=== PATIENT | female | born 1995 | race African-American/Black ===

== ENCOUNTER 2018-05-01 10:27 | Emergency (ER) | payer OTHER, SELFPAY ==
[2018-05-01] MEDS ORDERED: Acetaminophen 500 MG TAB ONE (10:52)
[2018-05-01 11:15] LABS: Bilirubin Small (Negative); Blood, Urine Large (Negative); Clarity CLOUDY (Clear); Glucose, Urine (Dipstick) Negative (Negative); Leukocyte Small (Negative); Nitrite Negative (Negative); Protein, Urine (Dipstick) Trace mg/dL (Neg-Trace); Specific Gravity, Urine 1.029 (1.002-1.036); pH, Urine 5.5 (5.0-9.0)
[2018-05-01 11:18] LABS: Pregnancy Test - Urine (BHCG) Negative (Negative); Pregu Control Background? CLEAR/WHITE (CLR/WHITE); Pregu Control Bar Appear? YES (CONTROL BAR); Specific Gravity 1.029 (1.002-1.036)
[2018-05-01 11:30] LABS: Bacteria/HPF 1+ HPF (None Seen); Hyaline Casts/LPF NONE SEEN LPF (0-3 Hyaline); Squamous Epithelial 0-3 HPF (0-3)
== END 2018-05-01 12:05 | disposition home or self-care (01) ==
LOC: ERS 10:27
DX: N39.0 Urinary tract infection, site not specified (principal); R50.9 Fever, unspecified; F41.9 Anxiety disorder, unspecified; F32.9 Major depressive disorder, single episode, unspecified; Z79.51 Long term (current) use of inhaled steroids
CPT/HCPCS: 81003; 81015; 81025; 87077; 87086; 87804; 99283

== ENCOUNTER 2018-10-25 03:11 | Emergency (ER) | payer SELFPAY | END 2018-10-25 05:07 | disposition home or self-care (01) | LOC: ERS 03:11 | DX: R09.81 Nasal congestion (principal); R05 Cough; J45.909 Unspecified asthma, uncomplicated; F41.9 Anxiety disorder, unspecified; F32.9 Major depressive disorder, single episode, unspecified | CPT/HCPCS: 99283 ==

== ENCOUNTER 2020-01-11 09:53 | Outpatient (CLI) | payer OTHER ==
--- NOTE | 2020-01-11 11:40 | ULT ---
OB ULTRASOUND GREATER THAN 14 WEEKS COMPLETE: HISTORY: Anatomy, cervical length. FINDINGS: A single viable intrauterine fetus is noted in breech presentation. Cervical length 4.1 cm. Placent a is anterior. heart rate 138 b.p.m. Normal amniotic fluid with an TENISHA of 10.3 cm. anatomy including visualized brain, 4-chamber heart, 3-vessel cord, stomach, bladder, kidneys, spine, and extremity regions were unremarkable. Biometry: BPD: 4.9 cm-20 weeks 6 days. Head circumference: 19 cm-21 weeks 2 days. Abdominal circumference: 15.9 cm-21 weeks 1 day. Femur length: 3.5 cm-21 weeks 0 days. IMPRESSION: Single viable intrauterine fetus 21 weeks 1 day. Estimated date of delivery 05/27/2020. Estimated weight 392 gm. POS: RRE
== END 2020-01-11 09:54 | disposition home or self-care (01) ==
LOC: BICULT 09:53
PROVIDERS: ATTEND Family Medicine
DX: Z34.02 Encounter for supervision of normal first pregnancy, second trimester (principal); Z3A.21 21 weeks gestation of pregnancy
CPT/HCPCS: 76805

== ENCOUNTER 2023-11-17 23:50 | Emergency (ER) | payer OTHER ==
[2023-11-18] MEDS ORDERED: Ipratropium/Albuterol 3 ML NEB ONE (01:32)
== END 2023-11-18 03:34 | disposition home or self-care (01) ==
LOC: ERS 23:50
DX: J45.901 Unspecified asthma with (acute) exacerbation (principal)
CPT/HCPCS: 71045; J7620

== ENCOUNTER 2024-03-06 18:03 | Emergency (ER) | payer OTHER ==
[2024-03-06 19:23] LABS: #Basophils 0.04 10x3/uL (0.0-0.2); %Basophils 0.4 % (0.0-1.0); %Eosinophils 1.1 % (0.0-10.0); %Lymphocytes 15.8 % (21.0-51.0); %Monocytes 5.4 % (0.0-10.0); Mean Corpuscular HGB CONC 34.2 g/dL (32.0-36.0); Mean Corpuscular Hemoglobin 32.3 pg (27.0-31.0); Mean Corpuscular Volume 94.3 fL (78.0-98.0); Mean Platelet Volume 9.6 fL (7.4-10.4); Platelet Count 269 10x3/uL (130-400); RBC Distribution Width 11.9 % (11.5-14.5); Red Blood Cell (RBC) Count 4.03 mill/uL (4.20-5.40)
[2024-03-06 19:41] LABS: ALT (SGPT) 7 U/L (8-55); AST (SGOT) 14 U/L (5-34); Albumin 3.7 g/dL (3.5-5.0); Alkaline Phosphatase 46 U/L (40-110); Anion Gap 14 mmol/L (10-20); BUN (Urea Nitrogen) 4 mg/dL (7.0-18.7); Bilirubin, Total 0.2 mg/dL (0.2-1.2); Calc. Creatinine Clearance 0 mL/min (70-130); Calcium 9.4 mg/dL (7.8-10.44); Carbon Dioxide 19 mmol/L (22-29); Chloride 107 mmol/L (98-107); Estimated GFR 125; Globulin 3.5 g/dL (2.4-3.5); Glucose 76 mg/dL (70-105); Lipase 13 U/L (8-78); Potassium 3.9 mmol/L (3.5-5.1); Protein, Total 7.2 g/dL (6.0-8.3); Sodium 136 mmol/L (136-145)
[2024-03-06 21:43] LABS: Bacteria/HPF None Seen HPF (None Seen); Bilirubin Negative (Negative); Blood, Urine Trace (Negative); CAUTI Indications for Culture Pregnancy; Clarity Clear (Clear); Glucose, Urine (Dipstick) Normal (Negative); Ketone, Urine Negative (Negative); Leukocyte Negative Leu/uL (Negative); Nitrite Negative (Negative); Protein, Urine (Dipstick) Negative (Neg-Trace); RBC/HPF 0-3 HPF (0-3); Specific Gravity, Urine 1.007 (1.002-1.036); Squamous Epithelial 0-3 HPF (0-3); Urobilinogen Normal mg/dL (Less than 2); WBC/HPF 0-3 HPF (0-3); pH, Urine 7.5 (5.0-9.0)
[2024-03-06 21:48] LABS: Urine Culture Reflex Yes Yes
== END 2024-03-06 22:09 | disposition home or self-care (01) ==
LOC: ERS 18:03
DX: O20.0 Threatened abortion (principal); Z3A.12 12 weeks gestation of pregnancy
CPT/HCPCS: 36415; 76856; 80053; 81001; 83690; 84702; 85025; 86900; 86901; 87086